=== PATIENT | male | born 1965 | race Caucasian/White ===

== ENCOUNTER 2021-09-03 12:06 | Emergency (ER) | payer BC, SELFPAY ==
--- NOTE | ~2021-09-03 | CT_ITS ---
EXAMINATION: CT abdomen pelvis wo con DATE: 09/03/2021 12:46 INDICATION: Left lower quadrant abdominal pain and diarrhea for 5 to 6 days TECHNIQUE: Computed tomography (CT) of the abdomen and pelvis was performed without intravenous contr ast. Automated exposure control and iterative reconstruction technique were employed. Exam dose: 426 .30 mGy-cm total exam DLP. COMPARISON: None. FINDINGS: Several small peripheral pulmonary densities, likely benign. No basilar infiltrate or conso lidation. Normal heart size. No pericardial or pleural effusion. There are calcified hepatic and splenic granulomas. No hepatic, splenic, pancreatic, adrenal or renal space-occupying mass lesion is evident on this limited noncontrast examination. There is atherosclerotic calcification but normal caliber of the abdominal aorta. No intraperitoneal or retroperitoneal or pelvic mass lesion or adenopathy or ascites. Fat-containing left inguinal hernia. The prostate gland and urinary bladder are unremarkable. The appendix measures up to 8 cm diameter interspace, 7.5 mm diameter in its midportion. No periappen diceal fat stranding or fluid or abscess is noted. There are multiple small nonenlarged right lower q uadrant mesenteric lymph nodes. No bowel obstruction, bowel wall thickening, pneumatosis or intraperitoneal free air is noted otherwi se. Included skeletal structures are unremarkable. IMPRESSION: Borderline size of the appendix; recommend clinical correlation to exclude early uncompl icated appendicitis Small fat-containing left inguinal hernia Reviewed, dictated and finalized at [facility]. Reviewed, dictated and finalized at [facility]. IMPRESSION: Borderline size of the appendix; recommend clinical correlation to exclude early uncomplicated appendicitis Small fat-containing left inguinal hernia
[2021-09-03 12:08] VITALS: BP 139/89; PULSE 100; RESP 20; TEMP 36.4; O2SAT 100
--- NOTE | 2021-09-03 12:33 | ED.GENADULT ---
HPI - General Adult General Chief complaint: Nausea/Vomiting/Diarrhea Stated complaint: diarrhea Time Seen by Provider: 09/03/21 12:10 History of Present Illness HPI narrative: 56-year-old male presented emerged department for evaluation of nausea without vomiting, lower abdominal cramping and diarrhea since Saturday. Patient states he did have some onset of lower abdominal cramping with nausea diarrhea on Saturday. Patient states symptoms persisted through Saturday, that did improve on Saturday. Patient states he did have a number of alcoholic drinks on Saturday and states on Saturday the symptoms have worsened. Patient ports multiple bowel diarrheal bowel movements through Saturday and into today, Saturday. Patient denies any blood in the stool patient denies any vomiting. Denies any prior abdominal surgical history. Patient has history of high cholesterol and GERD. Related Data Allergies Allergy/AdvReac Type Severity Reaction Status Date / Time No Known Allergies Allergy Verified 09/03/21 13:07 Review of Systems Review of Systems: CONSTITUTIONAL: Denies fever, chills, or sweats. EYES: Denies visual changes, redness, or discharge. ENT: Denies rhinorrhea, congestion, sore throat, or otalgia. CARDIOVASCULAR: Denies chest pain, palpitations, or edema. RESPIRATORY: Denies cough or dyspnea. GASTROINTESTINAL: See HPI GENITOURINARY: Denies dysuria or hematuria. SKIN: Denies rash or itching. MUSCULOSKELETAL: Denies back pain, joint pain, or myalgia. NEUROLOGIC: Denies headache, numbness, or weakness. Exam Narrative: APPEARANCE: Well appearing, no pain, no distress, well-nourished. HEAD: normocephalic, atraumatic. EYES: PERRLA/EOMI, conjunctivae clear. NOSE: Normal no drainage NECK: Supple. No adenopathy, no masses. RESPIRATORY: Airway patent, respirations nonlabored. Clear to auscultation bilaterally, no rales, rhonchi, wheezing. CARDIOVASCULAR: Regular rate and rhythm without murmurs rubs or gallops. ABDOMINAL: Soft, normal bowel sounds, some left lower quadrant tenderness to palpation. MUSCULOSKELETAL: Moves all extremities. Strength/ROM intact, No edema, No calf tenderness. NEURO: Alert. Cranial nerves II through XII intact. Grossly intact SKIN: Warm, dry. Normal Color Course Course Emergency Course: CT was read as borderline enlarged appendicitis. On patient's exam he does have some left lower quadrant tenderness to palpation even after pain meds. Minimal right lower quadrant tenderness to palpation. Case was discussed with Dr. staples, he was comfortable with the plan of treating the patient for his diarrheal symptoms. Patient prefers observation at home rather than admission and observation. Consultations Consultation #1: Dr. staples Vital Signs Vital signs: Vital Signs Temperature 97.6 F 09/03/21 12:08 Pulse Rate 100 09/03/21 12:08 Respiratory Rate 20 09/03/21 12:08 Blood Pressure 139/89 09/03/21 12:08 Pulse Oximetry 100 09/03/21 12:08 Oxygen Delivery Room Air 09/03/21 12:08 Temperature 97.6 F 09/03/21 12:08 Pulse Rate 100 09/03/21 12:08 Respiratory Rate 20 09/03/21 12:08 Blood Pressure 139/89 09/03/21 12:08 Pulse Oximetry 100 09/03/21 12:08 Oxygen Delivery Room Air 09/03/21 12:08 Medical Decision Making Vital Signs Vital Signs: Vital Signs Temperature 97.6 F 09/03/21 12:08 Pulse Rate 100 09/03/21 12:08 Respiratory Rate 20 09/03/21 12:08 Blood Pressure 139/89 09/03/21 12:08 Pulse Oximetry 100 09/03/21 12:08 Oxygen Delivery Room Air 09/03/21 12:08 Temperature 97.6 F 09/03/21 12:08 Pulse Rate 100 09/03/21 12:08 Respiratory Rate 20 09/03/21 12:08 Blood Pressure 139/89 09/03/21 12:08 Pulse Oximetry 100 09/03/21 12:08 Oxygen Delivery Room Air 09/03/21 12:08 Lab Data Lab results reviewed: Yes I reviewed the patient's lab results. Result diagrams: 09/03/21 12:54 09/03/21 12:54 Labs: Lab R
[2021-09-03 13:04] LABS: Basophils Percent Auto 0.4 % (0.2-1.2); Eosinophils Percent Auto 0.7 % (0-4.4); Hematocrit 43.6 % (42.0-52.0); Hemoglobin 14.6 g/dL (14.0-18.0); Immature Granulocyte Absolute 0.01 K/mm3 (0.00-0.031); Immature Granulocyte Percent A 0.2 % (0-0.5); Lymphocytes Absolute Auto 1.61 K/mm3 (0.9-3.2); Lymphocytes Percent Auto 28.8 % (18.3-44.2); Mean Corpuscular HGB Conc 33.5 g/dl (32-36); Mean Corpuscular Hemoglobin 29.4 pg (26-34); Mean Corpuscular Volume 87.7 fl (80-100); Mean Platelet Volume 9.6 fl (7.4-10.4); Monocytes Absolute Auto 0.8 K/mm3 (0.1-0.6); Monocytes Percent Auto 14.5 % (2.6-8.5); Neutrophils Absolute Auto 3.1 K/mm3 (1.3-6.7); Neutrophils Percent Auto 55.4 % (45.5-73.1); Platelet Count Result 175 k/mm3 (150-375); Red Blood Count 4.97 M/mm3 (4.6-6.20); Red Cell Distribution Width 12.9 % (11.5-14.5); White Blood Count 5.6 K/mm3 (4.5-10.0)
[2021-09-03] MEDS: SODIUM CHLORIDE 0.9% IV 1,000 ML 999 ML IV CONT (13:07)
[2021-09-03] MEDS: HYDROmorphone HCL INJ (*CRX) 1 MG/ML SYR 0.5 MG IV PUSH (13:08)
[2021-09-03] MEDS: ONDANSETRON INJ 4 MG/2 ML VIAL IV PUSH (13:08)
[2021-09-03 13:12] LABS: Lipase 94 U/L (23-300)
[2021-09-03 13:14] LABS: Alanine Aminotransferase 50 U/L (6-50); Albumin Level 4.4 g/dL (3.5-5.1); Alkaline Phosphatase 87 U/L (38-126); Anion Gap 10 mmol/L (8-16); Aspartate Amino Transferase 49 U/L (17-59); Bilirubin,Total 0.7 mg/dL (0.2-1.3); Blood Urea Nitrogen 12 mg/dL (9-20); Carbon Dioxide 22 mmol/L (22-30); Chloride 105 mmol/L (98-107); Estimated CRCL calculation 77 ml/min; Estimated Glomerular Filt Rate > 60; Glucose 105 mg/dL (65-110); Lactic Acid Reflex 0.8 mmol/L (0.7-2.0); Potassium 3.7 mmol/L (3.4-5.0); Sodium 137 mmol/L (137-145)
[2021-09-03 13:52] LABS: Appearance Urine Cloudy (Clear); Bilirubin Urine 2+ (Negative); Blood Urine Negative (Negative); Color Urine Yellow (Yellow); Glucose Urine UA Negative (Negative); Ketones Urine Trace mg/dL (Negative); Leukocyte Esterase Ur Negative LEU/UL (Negative); Nitrate Urine Negative (Negative); Protein Urine 2+ mg/dL (Negative); Specific Grav Ur >= 1.030 (1.001-1.035); Urobilinogen Urine 0.2 mg/dL (<2.0); pH Urine 5.5 (5.0-9.0)
[2021-09-03 14:06] LABS: Amorphous Sediment Urine Heavy; Bacteria Urine Trace /hpf; Mucus Urine Heavy /lpf
[2021-09-03 14:08] LABS: Add Urine Microscopic? YES
[2021-09-03 14:45] LABS: Toxigenic C. Diff NEGATIVE (NEGATIVE)
== END 2021-09-03 15:02 | disposition home or self-care (01) ==
PROVIDERS: Emergency Provider Emergency Medicine; PCP Internal Medicine
DX: R19.7 Diarrhea, unspecified (principal); R10.9 Unspecified abdominal pain
CPT/HCPCS: 36415; 74176; 80053; 81001; 83605; 83690; 85025; 87045; 87077; 87177; 87186; 87209; 87427; 87493; 89055; 96361; 96374; 96375; 99284; J1170; J2405; J7030